=== PATIENT | male | born 1970 | race Caucasian/White ===

== ENCOUNTER 2022-11-15 18:19 | Emergency (ER) | payer OTHER, SELFPAY ==
[2022-11-15] VITALS (21 sets, daily range): BP systolic 104–146; BP diastolic 64–90; PULSE 64–85; RESP 10–26; TEMP 37.2; O2SAT 94–100; BMI 23.3
[2022-11-15 18:33] LABS: Glucometer 101 mg/dL (74-106)
--- NOTE | 2022-11-15 18:33 | ED_ITS ---
Documented by User: Dona Song MD 11/15/22 19:40 HPI - General Adult General Chief complaint: Chest Pain Stated complaint: chest pain Time Seen by Provider: 11/15/22 18:29 Source: patient Mode of arrival: walk-in Limitations: altered mental status Limitations comment: Patient's friend and patient are poor historians History of Present Illness HPI narrative: I was called into the room to evaluate Mr. Zamudio who was complaining of chest pain, neck pain, and confusion. He states he's had acid reflux since 3:00 she's been taking tums. He then developed chest pain, and left-sided neck pain. Patient and relative are concerned because the patient had 5 stents. His last stents were placed months ago by . The patient takes an aspirin, and Plavix. He denies any headache, fall or trauma. He denies any abdominal pain. Patient denies any arm paresthesias, or weakness. He appears confused and slow to respond although he is answering all questions appropriately. Denies any visual disturbance. He denies any fever, chills, or cough. pt's friend tells nurse the patient's issue is that he has an abscess to his gluteus/rectum? Related Data Allergies Allergy/AdvReac Type Severity Reaction Status Date / Time No Known Drug Allergies Allergy Verified 11/15/22 18:32 Review of Systems ROS Status of ROS 10 or more systems reviewed and unremarkable except as noted in history and below [facility] Social History Smoking status: Current every day smoker Exam Narrative Exam Narrative: Nurses notes and vital signs reviewed and patient is not hypoxic. General: Nontoxic, and in no apparent distress. Skin: Warm, Diaphoretic, no pallor noted. No Rash Head: Normocephalic, atraumatic. Neck: Supple, non-tender. Eye: Pupils are equal, round and EOMI. No scleral icterus. Ears, Nose, Mouth, and Throat: TM clear, no posterior oropharynx erythema or nasal mucosal hypertrophy, uvula is mid-line Oral mucosa is moist Cardiovascular: Regular Rate and Rhythm without murmur, gallop or rub.No carotid bruits Respiratory: No accessory muscle use or respiratory distress. Lungs are clear to auscultation, no wheezing, rales or rhonchi Chest Wall: no tenderness Back: No midline thoracic or lumbar vertebral tenderness. No CVA tenderness Musculoskeletal: normal ROM, no calf or popliteal tenderness, no lower extremity edema/swelling GI: Abdomen is soft, non-distended. Normal bowel sounds. No tenderness to palpation. No rebound, guarding, or rigidity noted. Neurological: A&O x4. NIHSS-1,No cranial nerve dysfunction observed. No truncal ataxia. Moves all extremities. Psychiatric: Cooperative and interactive. anxiouos Constitutional Vital Signs, click to edit/add: Last Vital Signs Temp 99.0 F 11/15/22 18:30 Pulse 69 11/15/22 21:10 Resp 17 11/15/22 21:10 BP 113/64 11/15/22 20:00 Pulse Ox 94 L 11/15/22 19:50 O2 Del Method Room Air 11/15/22 18:30 Course Vital Signs Vital signs: Vital Signs Pulse Rate 85 11/15/22 18:28 Respiratory Rate 26 H 11/15/22 18:28 Blood Pressure 146/90 H 11/15/22 18:28 Pulse Oximetry 100 11/15/22 18:28 Temperature 99.0 F 11/15/22 18:30 Pulse Rate 69 11/15/22 21:10 Respiratory Rate 17 11/15/22 21:10 Blood Pressure 113/64 11/15/22 20:00 Pulse Oximetry 94 L 11/15/22 19:50 Oxygen Delivery Method Room Air 11/15/22 18:30 Medical Decision Making MDM Narrative Medical decision making narrative: Patient's Accu-Chek was normal. Patient was taken to CT scan of the brain stroke protocol. CT scan unremarkable. Lab studies were ordered. CTA's were ordered. Patient will be signed out to Dr. Sadiq Hughes at the end of my shift awaiting labs, CT scans, reevaluation, and disposition. I have not seen or evaluated the patient's rectal or perineal abscess. Lab Data Lab results reviewed: Yes I reviewed the patient's lab results Labs: Lab Results 11/15/22 11/15/22 11/15/22 Range/Units 18:31 18:40 21:05 WBC 10.6 (4.0-11.0) 10^3/uL RBC 4.90 (4.70-6.10) 10^6/uL Hgb 14.7 (14.0-18.0) g/dL Hct 42.1 (42.0-54.0) % MCV 85.9 (80.0-94.0) fL MCH 30.0 (25.9-34.0) pg MCHC 34.9 (29.9-35.2) g/dL RDW 13.3 (11.0-15.0) % Plt Count 362 (150-450) 10^3/uL MPV 8.4 L (9.5-13.5) fL Neut % (Auto) 58.0 (43.0-75.0) % Lymph % (Auto) 28.2 (20.5-60.0) % Emanuel % (Auto) 10.7 (1.7-12.0) % Eos % (Auto) 2.5 (0.9-7.0) % Baso % (Auto) 0.3 (0.2-2.0) % Neut # (Auto) 6.2 (1.4-6.5) 10^3/uL Lymph # (Auto) 3.0 (1.2-3.8) 10^3/uL Emanuel # (Auto) 1.1 H (0.3-0.8) 10^3/uL Eos # (Auto) 0.3 (0.0-0.7) 10^3/uL Baso # (Auto) 0.0 (0.0-0.1) 10^3/uL Abs Immat Gran (auto) 0.03 (0.00-0.03) 10^3/uL Imm/Tot Granulo (auto) 0.3 (0.0-0.5) % PT 10.3 (9.0-11.6) sec INR 0.97 APTT 29.9 (22.3-36.2) sec Sodium 137 (136-145) mmol/L Potassium 4.0 (3.5-5.1) mmol/L Chloride 100 (98-107) mmol/L Carbon Dioxide 22.6 (21.0-32.0) mmol/L Anion Gap 18.4 BUN 15.0 (7.0-18.0) mg/dL Creatinine 1.22 (0.70-1.30) mg/dL Est GFR ( Amer) >60 (>=60) Est GFR (Non-Af Amer) >60 (>=60) BUN/Creatinine Ratio 12.3 Glucose 94 (74-106) mg/dL Calcium 9.2 (8.5-10.1) mg/dL Total Bilirubin 0.3 (0.2-1.0) mg/dL AST 21 (15-37) U/L ALT 45 (16-63) U/L Alkaline Phosphatase 117 H (46-116) U/L Troponin I High Sens 6.5 7.3 (4.0-76.1) pg/mL Total Protein 8.5 H (6.4-8.2) g/dL Albumin 3.7 (3.4-5.0) g/dL Globulin 4.8 g/dL Albumin/Globulin Ratio 0.8 POC Glucose 101 (74-106) mg/dL Discharge Plan Discharge Chief Complaint: Chest Pain Clinical Impression: Chest pain, Acute confusion Patient Disposition: Home, Self-Care Time of Disposition Decision: 21:56 Instructions: Chest Pain (ED), Altered Mental Status (ED) Stand Alone Forms: Portal Instructions Referrals: Physician,Non-Staff, MD [Primary Care Provider] - 1 week Documented by User: Sadiq Rayo 11/15/22 22:07 HPI - General Adult General Chief complaint: Chest Pain Stated complaint: chest pain Time Seen by Provider: 11/15/22 18:29 Related Data Allergies Allergy/AdvReac Type Severity Reaction Status Date / Time No Known Drug Allergies Allergy Verified 11/15/22 18:32 PFSH PFS Social History Smoking status: Current every day smoker Exam Constitutional Vital Signs, click to edit/add: Last Vital Signs Temp 99.0 F 11/15/22 18:30 Pulse 69 11/15/22 21:10 Resp 17 11/15/22 21:10 BP 113/64 11/15/22 20:00 Pulse Ox 94 L 11/15/22 19:50 O2 Del Method Room Air 11/15/22 18:30 Course Vital Signs Vital signs: Vital Signs Pulse Rate 85 11/15/22 18:28 Respiratory Rate 26 H 11/15/22 18:28 Blood Pressure 146/90 H 11/15/22 18:28 Pulse Oximetry 100 11/15/22 18:28 Temperature 99.0 F 11/15/22 18:30 Pulse Rate 69 11/15/22 21:10 Respiratory Rate 17 11/15/22 21:10 Blood Pressure 113/64 11/15/22 20:00 Pulse Oximetry 94 L 11/15/22 19:50 Oxygen Delivery Method Room Air 11/15/22 18:30 Medical Decision Making MDM Narrative Medical decision making narrative: Patient's Accu-Chek was normal. Patient was taken to CT scan of the brain stroke protocol. CT scan unremarkable. Lab studies were ordered. CTA's were ordered. Patient will be signed out to Dr. Sadiq Rayo at the end of my shift awaiting labs, CT scans, reevaluation, and disposition. I have not seen or evaluated the patient's rectal or perineal abscess. Attending physician note - I took over care of this patient at 7pm shift change. I saw and examined the patient and interviewed him about his symptoms. he is no longer confused. His exam is unremarkable and he is without any worrisome cardiopulmonary findings on physical exam. He has an area of induration of the medial right buttock but no drainage or open sore. Testing was unremarkable. Troponin negative x2. EKG without acute ischemic changes. Chest x-ray, CT scanning of the head as well as CT angiogram of the head and neck were all unremarkable. He returned to baseline in terms of mentation and thought, according to his friend who is sitting in the room with him. Patient instructed to finish his antibiotics for his soft tissue infection and see the physician he saw originally for follow up. He will continue to take his prescribed meds and see his PCP in the next week or so. ED return if he worsens. - Nicole, DO Lab Data Lab results reviewed: Yes I reviewed the patient's lab results Labs: Lab Results 11/15/22 11/15/22 11/15/22 Range/Units 18:31 18:40 21:05 WBC 10.6 (4.0-11.0) 10^3/uL RBC 4.90 (4.70-6.10) 10^6/uL Hgb 14.7 (14.0-18.0) g/dL Hct 42.1 (42.0-54.0) % MCV 85.9 (80.0-94.0) fL MCH 30.0 (25.9-34.0) pg MCHC 34.9 (29.9-35.2) g/dL RDW 13.3 (11.0-15.0) % Plt Count 362 (150-450) 10^3/uL MPV 8.4 L (9.5-13.5) fL Neut % (Auto) 58.0 (43.0-75.0) % Lymph % (Auto) 28.2 (20.5-60.0) % Emanuel % (Auto) 10.7 (1.7-12.0) % Eos % (Auto) 2.5 (0.9-7.0) % Baso % (Auto) 0.3 (0.2-2.0) % Neut # (Auto) 6.2 (1.4-6.5) 10^3/uL Lymph # (Auto) 3.0 (1.2-3.8) 10^3/uL Emanuel # (Auto) 1.1 H (0.3-0.8) 10^3/uL Eos # (Auto) 0.3 (0.0-0.7) 10^3/uL Baso # (Auto) 0.0 (0.0-0.1) 10^3/uL Abs Immat Gran (auto) 0.03 (0.00-0.03) 10^3/uL Imm/Tot Granulo (auto) 0.3 (0.0-0.5) % PT 10.3 (9.0-11.6) sec INR 0.97 APTT 29.9 (22.3-36.2) sec Sodium 137 (136-145) mmol/L Potassium 4.0 (3.5-5.1) mmol/L Chloride 100 (98-107) mmol/L Carbon Dioxide 22.6 (21.0-32.0) mmol/L Anion Gap 18.4 BUN 15.0 (7.0-18.0) mg/dL Creatinine 1.22 (0.70-1.30) mg/dL Est GFR ( Amer) >60 (>=60) Est GFR (Non-Af Amer) >60 (>=60) BUN/Creatinine Ratio 12.3 Glucose 94 (74-106) mg/dL Calcium 9.2 (8.5-10.1) mg/dL Total Bilirubin 0.3 (0.2-1.0) mg/dL AST 21 (15-37) U/L ALT 45 (16-63) U/L Alkaline Phosphatase 117 H (46-116) U/L Troponin I High Sens 6.5 7.3 (4.0-76.1) pg/mL Total Protein 8.5 H (6.4-8.2) g/dL Albumin 3.7 (3.4-5.0) g/dL Globulin 4.8 g/dL Albumin/Globulin Ratio 0.8 POC Glucose 101 (74-106) mg/dL Imaging Data Chest x-ray: Radiologist's impression: Patient Name: BENJAMIN ZAMUDIO MRN: [id number] date: 1970 Sex: M Assigned Patient Location: ED.MAIN Current Patient Location: ED.MAIN Accession/Order Number: [id number] Exam Date: 11/15/2022 18:40 Report Date: 11/15/2022 19:42 At the request of: DONA SONG Procedure: XR chest 1V EXAM: XR chest 1V HISTORY: ms changes COMPARISON: Portable chest 06/25/2022 TECHNIQUE: Portable chest FINDINGS: The lung parenchyma is free of consolidation or infiltrate. No pneumothorax or pleural effusion. The cardiac, mediastinal and hilar contours are normal. The visualized osseous structures exhibit no gross abnormality. Stable BBs overlie the left hemithorax. IMPRESSION: No acute cardiopulmonary abnormality. Electronically authenticated by: JUDE MULLIGAN Date: 11/15/2022 19:42 CT scan - head: Radiologist's impression: Patient Name: BENJAMIN ZAMUDIO MRN: [id number] date: 1970 Sex: M Assigned Patient Location: ED.MAIN Current Patient Location: ED.MAIN Accession/Order Number: [id number] Exam Date: 11/15/2022 18:35 Report Date: 11/15/2022 18:58 At the request of: DONA SNOG Procedure: CT stroke head/brain wo con EXAM: CT stroke head/brain wo con HISTORY: ms changes COMPARISON: None. TECHNIQUE: Axial CT scans through the head were obtained without IV contrast administration. Dose reduction techniques were achieved by using: automated exposure control and/or adjustment of mA and /or kV according to patient size and/or use of iterative reconstruction technique. FINDINGS: There is no evidence of acute intracranial hemorrhage or abnormal extra-axial fluid collection. No mass effect or midline shift is seen. There is no evidence of large acute territorial infarction. There is no hydrocephalus. To the limit of CT, the posterior fossa appears unremarkable. No definite acute fracture is identified. Soft tissues are unremarkable. The visualized orbits show no abnormal mass. The visualized paranasal sinuses show no air-fluid level. Mastoid air cells are clear. IMPRESSION: No CT evidence of acute intracranial abnormality. If there is sufficient clinical concern for acute brain parenchymal pathology, consider MRI for further evaluation. Electronically authenticated by: LUCAS UNLU Date: 11/15/2022 18:58 cta head & neck: Radiologist's impression: Patient Name: BENJAMIN ZAMUDIO MRN: [id number] date: 1970 Sex: M Assigned Patient Location: ED.MAIN Current Patient Location: ED.MAIN Accession/Order Number: [id number] Exam Date: 11/15/2022 18:40 Report Date: 11/15/2022 19:57 At the request of: DONA SONG Procedure: CT angio head EXAM: CT angio head, CT angio neck HISTORY: ms changes COMPARISON: None. TECHNIQUE: Contrast enhanced head and neck CT arteriogram was performed. Scanning performed during the arterial phase from the thoracic inlet to the [place]. 3D reconstructions were rendered on a separate 3D workstation to evaluate vascular anatomy. Dose reduction techniques were achieved by using automated exposure control and/or adjustment of mA and/or kV according to patient size and/or use of iterative reconstruction technique. Carotid stenosis was measured utilizing NASCET criteria. FINDINGS: Arch and Subclavian Arteries: Standard three vessel arch. Subclavian arteries are patent bilaterally. Common Carotids: Patent bilaterally. There is a tiny calcified atherosclerotic plaque at right carotid bifurcation level. ICAs: Patent bilaterally to the carotid terminus. Mild scattered calcifications throughout both intracranial ICA segments without high-grade narrowing. MCAs: Normal bilaterally. ACAs: Normal bilaterally. casting assistant and P-comm: Normal bilaterally. Vertebral Arteries: Nondominant left V4 segment. There is no high-grade narrowing. Basilar Artery: Normal. Aneurysm: None. No abnormal intracranial enhancement is identified. No acute soft tissue abnormalities in the neck. Airway is patent. No enlarged cervical lymph nodes. There are moderate paraseptal emphysematous changes in bilateral lung apices. Multilevel moderate spondylotic changes at C5-7 levels. IMPRESSION: No high-grade or hemodynamically flow-limiting stenosis of the major arteries of the head and neck. No evidence of intracranial aneurysm or dissection. Patent dural venous sinuses. No abnormal intracranial enhancement Electronically authenticated by: [facility] Date: 11/15/2022 19:57 ECG Data Interpretation: EKG interpretation: Emergency Department physician interpretation. Normal sinus rhythm at 82bpm. Normal axis, normal intervals except slight increase in QRS, possible early right bundle branch block but no ST segment elevation or depression. Discharge Plan Discharge Chief Complaint: Chest Pain Clinical Impression: Chest pain, Acute confusion Patient Disposition: Home, Self-Care Time of Disposition Decision: 21:56 Instructions: Chest Pain (ED), Altered Mental Status (ED) Stand Alone Forms: Portal Instructions Referrals: Physician,Non-Staff, MD [Primary Care Provider] - 1 week
--- NOTE | 2022-11-15 18:34 | ECG_ITS ---
The [facility] Test Date: 2022-11-15 Pat Name: Lucas Arce Department: Room: - Gender: Male Consulting Group Analyst: : 1970 Requested By: [id number] Order Number: [id number] Reading MD: JOSSY HICKS Measurements Intervals Banco Rate: 82 P: 55 WA: 126 QRS: 54 QRSD: 110 T: 18 QT: 366 QTc: 405 Interpretive Statements 1100 Sinus rhythm 1102 Sinus arrhythmia 3613 Cannot rule out inferior myocardial infarction, probably old 9150 abnormal ECG No previous ECG available for comparison Electronically Signed On 11-16-2022 19:07:44 EDT by JOSSY HICKS
--- NOTE | 2022-11-15 18:40 | CT_ITS ---
The [address] [address] Patient Name: BENJAMIN ZAMUDIO MRN: [id number] date: 1970 Sex: M Assigned Patient Location: ED.MAIN Current Patient Location: ED.MAIN Accession/Order Number: [id number] Exam Date: 11/15/2022 18:35 Report Date: 11/15/2022 18:58 At the request of: DONA PAVON Procedure: CT stroke head/brain wo con EXAM: CT stroke head/brain wo con HISTORY: ms changes COMPARISON: None. TECHNIQUE: Axial CT scans through the head were obtained without IV contrast administration. Dose reduction techniques were achieved by using: automated exposure control and/or adjustment of mA and /or kV according to patient size and/or use of iterative reconstruction technique. FINDINGS: There is no evidence of acute intracranial hemorrhage or abnormal extra-axial fluid collection. No mass effect or midline shift is seen. There is no evidence of large acute territorial infarction. There is no hydrocephalus. To the limit of CT, the posterior fossa appears unremarkable. No definite acute fracture is identified. Soft tissues are unremarkable. The visualized orbits show no abnormal mass. The visualized paranasal sinuses show no air-fluid level. Mastoid air cells are clear. CT/CT stroke head/brain wo con IMPRESSION: No CT evidence of acute intracranial abnormality. If there is sufficient clinical concern for acute brain parenchymal pathology, consider MRI for further evaluation. Electronically authenticated by: LUCAS UNLU Date: 11/15/2022 18:58
--- NOTE | 2022-11-15 18:40 | PC.NURSE ---
pt immediately taken from triage to a room and placed on 12 lead ekg pt diaphoretic and slurred speach and unable to answer questions this nurse notifies dr alamo and dr alamo in with patient ct called for stat ct glucose 107 family friend argumentative w staff at times in regard to checking his glucose
[2022-11-15 18:49] LABS: Basophils Percent Auto 0.3 % (0.2-2.0); Eosinophils Absolute Auto 0.3 10^3/uL (0.0-0.7); Eosinophils Percent Auto 2.5 % (0.9-7.0); Hematocrit 42.1 % (42.0-54.0); Hemoglobin 14.7 g/dL (14.0-18.0); Immature Granulocytes Abs Auto 0.03 10^3/uL (0.00-0.03); Immature Granulocytes Pct Auto 0.3 % (0.0-0.5); Lymphocytes Percent Auto 28.2 % (20.5-60.0); Mean Corpuscular HGB Conc 34.9 g/dL (29.9-35.2); Mean Corpuscular Volume 85.9 fL (80.0-94.0); Mean Platelet Volume 8.4 fL (9.5-13.5); Monocytes Absolute Auto 1.1 10^3/uL (0.3-0.8); Monocytes Percent Auto 10.7 % (1.7-12.0); Neutrophils Absolute Auto 6.2 10^3/uL (1.4-6.5); Platelet Count 362 10^3/uL (150-450); Red Cell Distribution Width 13.3 % (11.0-15.0); White Blood Count 10.6 10^3/uL (4.0-11.0)
--- NOTE | 2022-11-15 18:55 | CT_ITS ---
[address] [address] Patient Name: BENJAMIN ZAMUDIO MRN: [id number] date: 1970 Sex: M Assigned Patient Location: ED.MAIN Current Patient Location: ED.MAIN Accession/Order Number: [id number] Exam Date: 11/15/2022 18:40 Report Date: 11/15/2022 19:57 At the request of: DONA PAVON Procedure: CT angio head EXAM: CT angio head, CT angio neck HISTORY: ms changes COMPARISON: None. TECHNIQUE: Contrast enhanced head and neck CT arteriogram was performed. Scanning performed during the arterial phase from the thoracic inlet to the [place]. 3D reconstructions were rendered on a separate 3D workstation to evaluate vascular anatomy. Dose reduction techniques were achieved by using automated exposure control and/or adjustment of mA and/or kV according to patient size and/or use of iterative reconstruction technique. Carotid stenosis was measured utilizing NASCET criteria. FINDINGS: Arch and Subclavian Arteries: Standard three vessel arch. Subclavian arteries are patent bilaterally. Common Carotids: Patent bilaterally. There is a tiny calcified atherosclerotic plaque at right carotid bifurcation level. ICAs: Patent bilaterally to the carotid terminus. Mild scattered calcifications throughout both intracranial ICA segments without high-grade narrowing. MCAs: Normal bilaterally. ACAs: Normal bilaterally. pit hand and P-comm: Normal bilaterally. Vertebral Arteries: Nondominant left V4 segment. There is no high-grade narrowing. Basilar Artery: Normal. Aneurysm: None. No abnormal intracranial enhancement is identified. No acute soft tissue abnormalities in the neck. Airway is patent. No enlarged cervical lymph nodes. There are moderate paraseptal emphysematous changes in bilateral lung apices. Multilevel moderate spondylotic changes at C5-[address]/CT angio head IMPRESSION: No high-grade or hemodynamically flow-limiting stenosis of the major arteries of the head and neck. No evidence of intracranial aneurysm or dissection. Patent dural venous sinuses. No abnormal intracranial enhancement Electronically authenticated by: LUCAS VELEZ Date: 11/15/2022 19:57
--- NOTE | 2022-11-15 18:55 | CT_ITS ---
[address] [address] Patient Name: BENJAMIN ZAMUDIO MRN: [id number] date: 1970 Sex: M Assigned Patient Location: ER Current Patient Location: [facility] Accession/Order Number: [id number] Exam Date: 11/15/2022 18:40 Report Date: 11/15/2022 19:57 At the request of: DONA PAVON Procedure: CT angio neck EXAM: CT angio head, CT angio neck HISTORY: ms changes COMPARISON: None. TECHNIQUE: Contrast enhanced head and neck CT arteriogram was performed. Scanning performed during the arterial phase from the thoracic inlet to the [place]. 3D reconstructions were rendered on a separate 3D workstation to evaluate vascular anatomy. Dose reduction techniques were achieved by using automated exposure control and/or adjustment of mA and/or kV according to patient size and/or use of iterative reconstruction technique. Carotid stenosis was measured utilizing NASCET criteria. FINDINGS: Arch and Subclavian Arteries: Standard three vessel arch. Subclavian arteries are patent bilaterally. Common Carotids: Patent bilaterally. There is a tiny calcified atherosclerotic plaque at right carotid bifurcation level. ICAs: Patent bilaterally to the carotid terminus. Mild scattered calcifications throughout both intracranial ICA segments without high-grade narrowing. MCAs: Normal bilaterally. ACAs: Normal bilaterally. financial services intern and P-comm: Normal bilaterally. Vertebral Arteries: Nondominant left V4 segment. There is no high-grade narrowing. Basilar Artery: Normal. Aneurysm: None. No abnormal intracranial enhancement is identified. No acute soft tissue abnormalities in the neck. Airway is patent. No enlarged cervical lymph nodes. There are moderate paraseptal emphysematous changes in bilateral lung apices. Multilevel moderate spondylotic changes at C5-[address]/CT angio neck IMPRESSION: No high-grade or hemodynamically flow-limiting stenosis of the major arteries of the head and neck. No evidence of intracranial aneurysm or dissection. Patent dural venous sinuses. No abnormal intracranial enhancement Electronically authenticated by: LUCAS UNLU Date: 11/15/2022 19:57
--- NOTE | 2022-11-15 18:55 | XR_ITS ---
The [address] [address] Patient Name: BENJAMIN ZAMUDIO MRN: [id number] date: 1970 Sex: M Assigned Patient Location: ED.MAIN Current Patient Location: ED.MAIN Accession/Order Number: [id number] Exam Date: 11/15/2022 18:40 Report Date: 11/15/2022 19:42 At the request of: DONA PAVON Procedure: XR chest 1V EXAM: XR chest 1V HISTORY: ms changes COMPARISON: Portable chest 06/25/2022 TECHNIQUE: Portable chest FINDINGS: The lung parenchyma is free of consolidation or infiltrate. No pneumothorax or pleural effusion. The cardiac, mediastinal and hilar contours are normal. The visualized osseous structures exhibit no gross abnormality. Stable BBs overlie the left hemithorax. XR/XR chest 1V IMPRESSION: No acute cardiopulmonary abnormality. Electronically authenticated by: JUDE MULLIGAN Date: 11/15/2022 19:42
[2022-11-15 19:07] LABS: Alanine Aminotransferase 45 U/L (16-63); Albumin Globulin Ratio 0.8; Albumin Level 3.7 g/dL (3.4-5.0); Alkaline Phosphatase 117 U/L (46-116); Anion Gap 18.4; Aspartate Amino Transferase 21 U/L (15-37); BUN Creatinine Ratio 12.3; Bilirubin Total 0.3 mg/dL (0.2-1.0); Calcium 9.2 mg/dL (8.5-10.1); Carbon Dioxide 22.6 mmol/L (21.0-32.0); Chloride 100 mmol/L (98-107); Estimated GFR (African America >60 (>=60); Estimated GFR (Non-African Ame >60 (>=60); Globulin 4.8 g/dL; Glucose 94 mg/dL (74-106); Sodium 137 mmol/L (136-145); Total Protein 8.5 g/dL (6.4-8.2); Troponin I High Sensitivity 6.5 pg/mL (4.0-76.1)
[2022-11-15 19:12] LABS: INR 0.97; Partial Thromboplastin Time 29.9 sec (22.3-36.2); Prothrombin Time 10.3 sec (9.0-11.6)
[2022-11-15 21:42] LABS: Troponin I High Sensitivity 7.3 pg/mL (4.0-76.1)
== END 2022-11-15 22:06 | disposition home or self-care (01) ==
PROVIDERS: Emergency Medicine; Emergency Provider Emergency Medicine
DX: R07.9 Chest pain, unspecified (principal); R41.0 Disorientation, unspecified; Z79.82 Long term (current) use of aspirin; Z79.02 Long term (current) use of antithrombotics/antiplatelets; F17.210 Nicotine dependence, cigarettes, uncomplicated
CPT/HCPCS: 36415; 70450; 70496; 70498; 71045; 80053; 84484; 85025; 85610; 85730; 93005; 99285; Q9967